=== PATIENT | female | born 1935 | race Caucasian/White ===

== ENCOUNTER → 2016-06-20 | Outpatient (CLI) | payer MEDICARE, SELFPAY ==
[~2016-06-20] MED LIST: ASPIRIN CHEWABL81 MG PO; ATORVASTATIN CA40 MG PO; BUMEX 1MG TABLET1 MG PO; CALCIUM + D3 E1 EACH PO; COLACE 100MG C100 MG PO; HYDRALAZINE HCL25 MG PO; HYDRALAZINE HCL50 MG PO; IRON18 MG PO; IRON325 MG PO; KLOR-CON20 MEQ PO; LANTUS100 UNIT/1 SQ; LASIX 40 MG TAB40 MG PO; LASIX40 MG PO; LEVAQUIN500 MG PO; LIPITOR TAB 2020 MG PO; LOPRESSOR 25 MG25 MG PO; LUTEIN20 MG PO; NOVOLOG 10100 UNITS/ SC; PLAVIX 75 MG TA75 MG PO; PROTONIX40 MG PO; TYLENOL 325MG325 MG PO; TYLENOL W/CODEIN1 E1 PO; VITAMIN C 500500 MG PO; VITAMIN D5000 UNIT PO; VITAMIN E400 UNI4 PO
== END ==
LOC: HEART 5 06-19 15:30
DX: I25.10 Atherosclerotic heart disease of native coronary artery without angina pectoris (principal)
CPT/HCPCS: 93306

== ENCOUNTER → 2016-06-22 | Outpatient (CLI) | payer MEDICARE, SELFPAY | LOC: HEART 5 11:00 | DX: R42 Dizziness and giddiness (principal); I65.22 Occlusion and stenosis of left carotid artery ==

== ENCOUNTER → 2016-08-08 | Outpatient (CLI) | payer MEDICARE | LOC: LAB 07:25 | DX: I10 Essential (primary) hypertension (principal) | CPT/HCPCS: 36415; 82565; 84520 ==

== ENCOUNTER → 2016-08-15 | Outpatient (CLI) | payer MEDICARE, SELFPAY | LOC: CT 08:23 | DX: I65.29 Occlusion and stenosis of unspecified carotid artery (principal); I65.22 Occlusion and stenosis of left carotid artery; R93.0 Abnormal findings on diagnostic imaging of skull and head, not elsewhere classified | CPT/HCPCS: 70498; J7050; Q9963 ==